=== PATIENT | female | born 1955 | race Two or more races ===

== ENCOUNTER 2017-08-10 14:17 | Outpatient (CLI) | payer OTHER | END 2017-08-10 14:18 | disposition home or self-care (01) | LOC: RAD 14:17 | DX: J20.8 Acute bronchitis due to other specified organisms (principal) ==

== ENCOUNTER 2018-03-09 11:31 | Outpatient (CLI) | payer OTHER | END 2018-03-09 12:00 | disposition home or self-care (01) | LOC: NUCLEAR 11:31 | DX: I20.1 Angina pectoris with documented spasm (principal) ==

== ENCOUNTER 2019-11-01 08:00 | Outpatient (CLI) | payer OTHER | END 2019-11-01 15:00 | disposition home or self-care (01) | LOC: PPH VACUNA 08:00 | DX: Z23 Encounter for immunization (principal) ==

== ENCOUNTER 2019-12-10 15:52 | Outpatient (CLI) | payer OTHER | END 2019-12-10 16:00 | disposition home or self-care (01) | LOC: LAB 15:52 | PROVIDERS: ATTEND Anesthesiology Pain Medicine | DX: J45.998 Other asthma (principal); Z02.79 Encounter for issue of other medical certificate ==

== ENCOUNTER 2020-01-29 11:10 | Outpatient (CLI) | payer OTHER | END 2020-01-29 15:00 | disposition home or self-care (01) | LOC: PPH VACUNA 11:10 | DX: Z23 Encounter for immunization (principal) ==

== ENCOUNTER 2020-09-17 15:32 | Outpatient (CLI) | payer OTHER | END 2020-09-17 15:39 | disposition home or self-care (01) | LOC: LAB 15:32 | DX: Z03.818 Encounter for observation for suspected exposure to other biological agents ruled out (principal) ==

== ENCOUNTER → 2020-11-11 | Outpatient (CLI) | payer OTHER | END | disposition home or self-care (01) | LOC: PPH VACUNA 08:00 | PROVIDERS: ATTEND Emergency Medicine Pediatric Emergency Medicine | DX: Z23 Encounter for immunization (principal) ==

== ENCOUNTER 2020-11-28 08:00 | Outpatient (CLI) | payer OTHER | END 2020-11-28 08:30 | disposition home or self-care (01) | LOC: PPH VACUNA 08:00 | PROVIDERS: ATTEND Emergency Medicine Pediatric Emergency Medicine | DX: Z23 Encounter for immunization (principal) ==

== ENCOUNTER 2021-05-26 09:05 | Outpatient (CLI) | payer OTHER | END 2021-05-26 09:10 | disposition home or self-care (01) | LOC: PPH VACUNA 09:05 | PROVIDERS: ATTEND Emergency Medicine Pediatric Emergency Medicine | DX: Z23 Encounter for immunization (principal) ==

== ENCOUNTER → 2021-07-02 | Outpatient (CLI) | payer OTHER | END | disposition home or self-care (01) | LOC: NUCLEAR 11:15 | PROVIDERS: ATTEND Specialist | DX: M81.0 Age-related osteoporosis without current pathological fracture (principal) ==

== ENCOUNTER 2021-11-10 12:37 | Outpatient (CLI) | payer OTHER | END 2021-11-10 12:47 | disposition home or self-care (01) | LOC: PPH VACUNA 12:37 | PROVIDERS: ATTEND Emergency Medicine Pediatric Emergency Medicine | DX: Z23 Encounter for immunization (principal) ==

== ENCOUNTER 2022-04-05 15:45 | Outpatient (CLI) | payer OTHER | END 2022-04-05 15:53 | disposition home or self-care (01) | LOC: LAB 15:45 | PROVIDERS: ATTEND Specialist | DX: Z12.11 Encounter for screening for malignant neoplasm of colon (principal); D64.9 Anemia, unspecified; E03.8 Other specified hypothyroidism; N95.1 Menopausal and female climacteric states; I10 Essential (primary) hypertension; C51.9 Malignant neoplasm of vulva, unspecified; N30.00 Acute cystitis without hematuria; E83.51 Hypocalcemia; A64 Unspecified sexually transmitted disease; N39.0 Urinary tract infection, site not specified; R97.8 Other abnormal tumor markers; R79.89 Other specified abnormal findings of blood chemistry; E55.9 Vitamin D deficiency, unspecified; A60.9 Anogenital herpesviral infection, unspecified ==

== ENCOUNTER → 2022-06-09 11:39 | Outpatient (CLI) | payer OTHER | END | disposition home or self-care (01) | LOC: LAB 11:39 | DX: Z11.59 Encounter for screening for other viral diseases (principal) ==

== ENCOUNTER 2022-09-16 14:10 | Outpatient (CLI) | payer OTHER | END 2022-09-16 14:19 | disposition home or self-care (01) | LOC: MAMO-SONO 14:10 | PROVIDERS: ATTEND Specialist | DX: N60.11 Diffuse cystic mastopathy of right breast (principal); N60.12 Diffuse cystic mastopathy of left breast ==

== ENCOUNTER 2022-10-14 | Outpatient (CLI) | payer OTHER | END 2022-10-14 00:15 | disposition home or self-care (01) | LOC: PPH VACUNA | PROVIDERS: ATTEND Emergency Medicine Pediatric Emergency Medicine | DX: Z23 Encounter for immunization (principal) ==

== ENCOUNTER 2024-01-11 08:42 | Outpatient (CLI) | payer OTHER | END 2024-01-11 08:52 | disposition home or self-care (01) | LOC: MAMO-SONO 08:42 | PROVIDERS: ATTEND Obstetrics & Gynecology | DX: N64.4 Mastodynia (principal) ==